=== PATIENT | female | born 1960 | race Hispanic/Latino ===

== ENCOUNTER 2017-07-15 08:27 | Observation (INO) | payer BC ==
[~2017-07-15] VITALS: Ht 157.5 cm; Wt 86.0 kg
[~2017-07-15 08:27] MED LIST: NO HOME MEDS; TAM75CAP OR
--- NOTE | 2017-07-15 08:36 | NUR ---
PT AMBULATED TO ROOM WITH A STEADY GAIT.
[2017-07-15 09:00] LABS: INFLUENZA A NONE DETECTED (NONE DETECT); INFLUENZA B NONE DETECTED (NONE DETECT)
--- NOTE | 2017-07-15 09:10 | NUR ---
PATIENT HAS WHEEZING TO LEFT LUNG. RESPIRATIONS ARE EVEN AND UNLABORED. MASK APPLIED TO FACE. FAMILY AT BEDSIDE. WILL CONTINUE TO MONITOR.
[2017-07-15 09:24] LABS: HEMATOCRIT 41.6 % (37.0-47.0); HEMOGLOBIN 14.1 g/dl (12.0-16.0); IMMATURE GRANULOCYTES 0.3 % (0.0-1.0); MEAN CORPUSCULAR HGB 32.3 pG CALC (26.0-32.0); MEAN CORPUSCULAR HGB CONC 33.9 g/L CALC (32.0-36.0); NEUT# 7.29 thou/uL (2.00-7.15); RED BLOOD COUNT 4.37 mill/uL (4.20-5.60); RED CELL DISTRI WIDTH 13.9 % (11.5-15.5)
[2017-07-15 09:36] LABS: ANION GAP 17 (6-22 (CALC)); BUN 9 mg/dL (7-17); BUN/CREATININE RATIO 17 (12-20 (CALC)); CARBON DIOXIDE 21 mmol/l (22-30); CHLORIDE 101 mmol/l (95-108); CREATININE 0.6 mg/dL (0.5-1.0); GFR > 60 ML/MIN (>=60 (CALC)); GFR FOR AFR.AMER. > 60 ML/MIN (>=60 (CALC)); POTASSIUM 3.7 mmol/l (3.5-5.1); SODIUM 135 mmol/l (137-146)
[2017-07-15 09:40] LABS: MEAN CELL VOLUME 95.2 fL CALC (80.0-100.0)
--- NOTE | 2017-07-15 10:09 | NUR ---
SBAR PRINTED TO FLOOR
--- NOTE | 2017-07-15 10:14 | NUR ---
IV ANTIBIOTICS AND IV FLUIDS INFUSING WELL. WILL CONTINUE TO MONITOR.
--- NOTE | 2017-07-15 11:10 | NUR ---
REPORT GIVEN TO FANG ADAMS.
--- NOTE | 2017-07-15 11:20 | NUR ---
PATIENT TRANSPORTED TO [facility] VIA STRETCHER. BEDSIDE REPORT GIVEN TO MARIELENA ADAMS. CARE RELINQUISHED.
--- NOTE | 2017-07-15 11:23 | NUR ---
PT ARRIVED TO FLOOR VIA STRETCHER ACCOMPANIED BY FANG HERMAN. PT AMBULATES INDEPENDENTLY. PLAN OF CARE DISCUSSED. REPORTING OF CONCERNS ENCOURAGED. CALL LIGHT REVIEWED AND IN REACH. PT STATES UNDERSTANDING.
[2017-07-15 11:53] VITALS: BP 111/63
[2017-07-15 15:45] VITALS: BP 112/59
--- NOTE | 2017-07-15 16:30 | NUR ---
DR. ASCENCIO IN TO SEE PT AT THIS TIME.
[2017-07-15 19:10] VITALS: BP 114/64
--- NOTE | 2017-07-15 19:15 | NUR ---
PT SITTING UP ON SIDE OF BED. PT IS ALERT AND ORIENTED X3. PERRLA. RESP ARE EVEN AND UNLABORED, NO DISRESS NOTED. LUNGS ARE CLEAR. HR REGULAR. PULSES PALPABLE THROUGHOUT. NO EDEMA NOTED. BS ACTIVE. #20 LAC SALIE LOCKED. NO REDNESS OR EDEMA NOTED. CALL LIGHT IN REACH WILL CONTINUE TO MONITOR
[2017-07-15 19:32] LABS: URINE BILIRUBIN - DIPSTICK NEGATIVE (NEGATIVE); URINE BLOOD DIPSTICK SMALL (NEGATIVE); URINE COLOR YELLOW; URINE GLUCOSE - DIPSTICK >=1000 mg/dL (NEGATIVE); URINE KETONE TRACE mg/dL (NEGATIVE); URINE LEUK ESTERASE NEGATIVE (NEGATIVE); URINE NITRITE - DIPSTICK NEGATIVE (Negative); URINE PH 5.5 (4.5-8.0); URINE PROTEIN - DIPSTICK NEGATIVE (NEG-TRACE); URINE UROBILINOGEN - DIPSTICK 0.2 E.U./dL (0.2)
[2017-07-15 20:42] LABS: URINE CLARITY CLEAR
[2017-07-15 20:48] LABS: URINE SQUAMOUS EPITHELIAL CELL FEW EPI/hpf (0-FEW)
--- NOTE | 2017-07-16 | NUR ---
PT RESTING IN BED WITH EYES CLOSED. RESP ARE EVEN AND UNLABORED. NO DISTRESS NOTED. WILL CONTINUE TO MONITOR
--- NOTE | 2017-07-16 03:41 | NUR ---
PT RESTING IN BED WITH EYES CLOSED. RESP ARE EVEN AND UNLABORED. NO DISTRESS NOTED. WILL CONTINUE TO [place]
[2017-07-16 04:33] VITALS: BP 105/53
[2017-07-16 05:17] LABS: HEMATOCRIT 36.5 % (37.0-47.0); HEMOGLOBIN 12.8 g/dl (12.0-16.0); IMMATURE GRANULOCYTES 0.5 % (0.0-1.0); MEAN CELL VOLUME 94.3 fL CALC (80.0-100.0); MEAN CORPUSCULAR HGB 33.1 pG CALC (26.0-32.0); MEAN CORPUSCULAR HGB CONC 35.1 g/L CALC (32.0-36.0); RED BLOOD COUNT 3.87 mill/uL (4.20-5.60); RED CELL DISTRI WIDTH 14.3 % (11.5-15.5)
[2017-07-16 05:23] LABS: ALBUMIN 2.7 g/dL (3.2-5.0); ALKALINE PHOSPHATASE 117 u/l (38-126); ANION GAP 13 (6-22 (CALC)); BILIRUBIN, TOTAL 1.8 mg/dL (0.0-1.4); BUN 14 mg/dL (7-17); BUN/CREATININE RATIO 30 (12-20 (CALC)); CARBON DIOXIDE 23 mmol/l (22-30); CHLORIDE 107 mmol/l (95-108); CREATININE 0.5 mg/dL (0.5-1.0); GFR > 60 ML/MIN (>=60 (CALC)); GFR FOR AFR.AMER. > 60 ML/MIN (>=60 (CALC)); POTASSIUM 3.8 mmol/l (3.5-5.1); SGOT/AST 74 u/l (14-36); SGPT/ALT 67 u/l (9-52); SODIUM 139 mmol/l (137-146); TOTAL PROTEIN 6.6 g/dL (6.3-8.2)
[2017-07-16 05:36] LABS: PLATELET COUNT 32 thou/uL (130-400)
[2017-07-16 05:37] LABS: BAND 1 % (0-8); MANUAL DIFFERENTIAL YES
--- NOTE | 2017-07-16 07:27 | NUR ---
RECEIVED BEDSIDE REPORT FROM DIEGO WILDER. SITTING ON EDGE OF BED. FAMILY AT BEDSIDE. RESPS EVEN AND UNLABORED ON ROOM AIR. DENIES PAIN OR DISCOMFORT. PLAN OF CARE DISCUSSED. SAFETY PRECAUTIONS REINFORCED. BED IN LOWEST POSITION WITH WHEELS LOCKED. CALL LIGHT WITHIN REACH. ENCOURAGED PT AND FAMILY TO CALL FOR ANY NEEDS.
[2017-07-16 07:58] VITALS: BP 110/51
--- NOTE | 2017-07-16 12:28 | NUR ---
SITTING ON EDGE OF BED EATING LUNCH. RESPS EVEN AND UNLABORED ON ROOM AIR. DENIES PAIN OR DISCOMFORT. FAMILY AT BEDSIDE. CALL LIGHT WITHIN REACH. WILL CONTINUE TO MONITOR.
[2017-07-16 15:08] VITALS: BP 112/68
--- NOTE | 2017-07-16 16:23 | NUR ---
SITTING ON EDGE OF BED, VISITOR AT BEDSIDE. RESPS EVEN AND UNLABORED ON ROOM AIR, TELE MONITOR IN PLACE. VOICES NO NEEDS AT THIS TIME. CALL LIGHT WITHIN REACH. WILL CONTINUE TO MONITOR.
[2017-07-16] MEDS ORDERED: LEVAQUIN750 MG PO (16:55)
[2017-07-16] MEDS ORDERED: METFORMIN500 MG PO (16:55)
--- NOTE | 2017-07-16 17:00 | NUR ---
IV site discontinued, cath intact. No edema , no redness, voices no discomfort.
== END 2017-07-16 17:30 | disposition home or self-care (01) | DRG 195 ==
LOC: ED 08:27 → ED-I 09:54 → ED 10:05 → MS2 10:06
PROVIDERS: Family Medicine; ADMIT Hospitalist; ATTEND Hospitalist
DX: J18.9 Pneumonia, unspecified organism (principal); E11.65 Type 2 diabetes mellitus with hyperglycemia; D69.6 Thrombocytopenia, unspecified; R74.8 Abnormal levels of other serum enzymes
CPT/HCPCS: G0378; J0692; J1956